=== PATIENT | male | born 1955 | race Caucasian/White ===

== ENCOUNTER 2019-07-14 19:51 | Inpatient (IN) | payer MEDICAID, SELFPAY ==
[2019-07-14 19:53] VITALS: BP 150/97; PULSE 125; RESP 18; TEMP 36.4; O2SAT 97; BMI 28.9
--- NOTE | 2019-07-14 20:21 | CT_ITS ---
We are attempting to reach an attending provider to discuss findings. An addendum with communication details will be sent when the communication is complete. STUDY: CT ABDOMEN AND PELVIS WITHOUT CONTRAST REASON FOR EXAM: Male, 63 years old. RIGHT LOWER QUADRANT PAIN, NAUSEA X2 DAYS. WORSENING TONIGHT. RADIATION DOSAGE (If Supplied By Facility): CTDIvol = ( 11.23 ) mGy, DLP = ( 614.72 ) mGycm TECHNIQUE: Transaxial images were obtained from the dome of the diaphragm to the symphysis pubis without oral contrast, and without intravenous contrast. Sagittal and coronal images were reconstructed. Individualized dose optimization techniques were used for this CT. COMPARISON: None. FINDINGS: The visualized lung bases are unremarkable. The visualized portions of the heart are within normal limits. Normal liver. Cholelithiasis. Normal spleen. Normal pancreas. Normal bilateral adrenal glands. 5 cm right renal cyst. Normal left kidney. Normal visualized stomach. Normal small intestine. There are multiple colonic diverticula consistent with diverticulosis. Acute appendicitis is present. The appendix is 16 mm in diameter with extensive adjacent fatty stranding. No abscesses or free air are seen. Normal abdominal aorta. Normal inferior vena cava. Normal retroperitoneum. Normal urinary bladder. Mild free pelvic fluid. Normal abdominal wall. Normal osseous structures. CT/Abdomen/Pelvis without Cont IMPRESSION: Acute appendicitis is present. The appendix is 16 mm in diameter with extensive adjacent fatty stranding. No abscesses or free air are seen. Cholelithiasis. Mild free pelvic fluid. Electronically Signed: Allan Herbert MD at 21:11 EST Tel , Service support ,
[2019-07-14 20:41] LABS: Red Blood Cells-Urine 0 SEEN /hpf (0-5); Squamous Epithelial Cells - UA 0 SEEN /hpf (0-5)
[2019-07-14] MEDS: 0.9% Normal Saline 1,000 ML 125 ML IV (20:42)
[2019-07-14] MEDS: Ondansetron 4 MG/2 ML Vial IV (20:43)
[2019-07-14] MEDS: Morphine 4 MG/ML Syringe IV (20:44)
[2019-07-14 20:47] LABS: Absolute Lymphocyte Count 1.95 X10^3/uL (0.83-4.51); Absolute Neutrophil Count 10.8 X10^3/uL (2.0-7.7); Basophil# 0.03 X10^3/uL; Basophil% 0.2 % (0-1); Eosinophil# 0.07 X10^3/uL; Eosinophils% 0.5 % (0-5); Hemoglobin 16.3 g/dL (13.0-16.5); Lymphocyte # 1.95 X10^3/ul (4.0); Lymphocyte % 13.8 % (19-41); Mean Corp Hgb Conc 33.3 g/dL (32-36); Mean Corpuscular Hgb 29.2 pg (27.0-32.0); Mean Corpuscular Volume 87.8 fL (80-94); Mean Platelet Vol. 9.6 fl (6.2-12.0); Monocyte# 1.26 X10^3/uL; Monocyte% 8.9 % (0-10); NRBC Flagged by Analyzer 0 % (0-5); Neutrophil # 10.75 X10^3/uL (2.7-7.7); Neutrophil % 76.2 % (47-70); Platelet Count 217 K/mm3 (150-450); RBC Distribution Width CV 11.9 % (11.6-14.6); RBC Distribution Width SD 38.2 fl (35.1-43.9); Red Blood Count 5.58 M/mm3 (4.6-6.2); White Blood Count 14.1 K/mm3 (4.4-11.0)
[2019-07-14 20:52] LABS: Color, Urine Amber (Yellow); Glucose, Dipstick Normal (Normal); Ketone-Dipstick 15 mg/dl (Negative); Leukocyte Esterase-Dipstick 25 /ul (Negative); Nitrite-Dipstick Negative (Negative); Occult Blood-Urine 25 /ul (Negative); Protein-Dipstick 30 mg/dl (Negative); Urine Clarity Sl. Cloudy (Clear); Urine Urobilinogen 8 mg/dl (Normal)
[2019-07-14 20:57] LABS: Urine Bilirubin Dipstick 1 mg/dL (Negative)
[2019-07-14 20:59] LABS: Bacteria RARE /hpf (None Seen); Mucous, Urine 1+ /hpf (<or=2+); White Blood Cells 0-5 SEEN /hpf (0-5)
[2019-07-14 21:00] LABS: Anion Gap 8 (5-15); BUN 14 mg/dL (7-18); BUN/Creat Ratio 10.4 RATIO (10-20); Calcium,Total 9.3 mg/dL (8.5-10.1); Chloride 99 mmol/L (98-107); Creatinine, Serum 1.34 mg/dL (0.70-1.30); EST Glomerular Filtration Rate 57 mL/min (>60); Est Glom Filt Rate - Afr Amer 69 mL/min (>60); Estimated Creatinine Clearance 58.26 ml/min; Glucose 113 mg/dL (74-106); Potassium 3.7 mmol/L (3.5-5.1); Sodium Level 135 mmol/L (136-145)
--- NOTE | 2019-07-14 21:19 | ED.DCSUM_ITS ---
History of Present Illness Chief Complaint: Abd Pain Narrative: Patient presenting secondary to abdominal pain. Patient reports that he has had abdominal pain since yesterday. He reports that it is a continuous right lower quadrant type abdominal pain that has paroxysms of pain. He reports that these paroxysms will come and go, and are not necessarily associated with any exacerbating or relieving qualities. Patient reports that he has had nausea but no vomiting. He denies any dysuria hematuria diarrhea constipation. He is never had any prior similar episodes in the past. He has a distant history of a hernia surgery when he was an . No other abdominal surgeries. Review of systems otherwise negative. Past Medical History - Allergies and Home Meds Allergies/Adverse Reactions: Allergies Penicillins Allergy (Verified 07/14/19 19:52) [place] Primary Care Physician: Care Physician,No Primary [Primary Care Provider] - Past Medical History: None Surgical History: - - Hernia repair Smoking Status: Never smoker Review of Systems All systems negative except as indicated General: Reports: - - Anorexia Eyes: Denies: Visual changes - bilaterally, Diplopia ENT: Denies: Rhinorrhea, Sore throat Cardiovascular: Denies: Chest pain, Palpitations Respiratory: Denies: Dyspnea, Cough, Dyspnea on exertion Gastrointestinal: Reports: Abdominal pain, Nausea Genitourinary: Denies: Dysuria, Hematuria, Frequency Musculoskeletal: Denies: Back pain, Extremity Pain Skin: Denies: Rash, Wounds Neurological: Denies: Headache, Weakness, Numbness Physical Exam Vital Signs/Narrative: Vital Signs Temp Pulse Resp BP Pulse Ox 07/14/19 19:53 97.5 F L 125 H 18 150/97 H 97 Inital Vital Signs reviewed: Yes General: Well nourished, Well developed, No Acute Distress Head: Normocephalic, Atraumatic Eyes: Perrl, EOMI ENT: Moist mucous membranes, No rhinorrhea Neck: Supple, Nontender Cardiovascular: Regular rate, Regular rhythm, No murmurs Respiratory: No distress, CTA bilaterally, Chest nontender Abdomen: Soft, Nondistended, Normal bowel sounds, Tender - Right lower quadrant over McBurney's point, Guarding Back: Nontender, Normal Inspection Extremities: Nontender, No edema Skin: Normal color, No rash Neurological: Alert, Oriented x3, Cranial nerves II-XII grossly intact, Normal Strength, Normal Sensation Psychological: Normal affect, Normal Mood Diagnostic/Tx/Re-eval - Medical Decision Making Patient presented secondary to right lower quadrant pain his initial history sounded concerning for kidney stone, but his physical exam was concerning for appendicitis. CBC demonstrates a leukocytosis of 14. CT abdomen and pelvis was performed and shows evidence of an perforated appendicitis per radiology and my personal review. Patient has a history of a penicillin allergy he was given Cip ro and Flagyl. He did not request any pain medication. Patient will be admitted under general surgery on-call for definitive surgical management. ED Disposition - Plan for ED Patient: Disposition: Acute Care Hospital [facility] Diagnosis: Acute appendicitis
--- NOTE | 2019-07-14 21:30 | ED.RN ---
[employer] CHANNEL OPENER CALLED, REQUESTED PT COME TO OR PAUL, INFORMATION PASSED TO ABDIEL RN AND ERIC TURNING MACHINE SET UP OPERATOR
[2019-07-14] MEDS: Ciprofloxacin 400 MG/200 ML BAG 200 MG IV (21:37)
[2019-07-14 21:46] VITALS: BP 173/86; PULSE 120; RESP 14; TEMP 36.9; O2SAT 96
[2019-07-14 21:49] VITALS: BP 173/86; PULSE 120; RESP 16; TEMP 36.9; O2SAT 96; BMI 28.9
--- NOTE | 2019-07-14 22:00 | APP_PTH ---
PATIENT: SHREYAS SUBRAMANIAN LOC: MS3 U#:[id number] AGE/SX: 63/M ROOM: GA312 RE07/14/[address]: Dr. Ze Elizabeth MD : 1955 BED: 1 DIS: 07/16/2019 SPEC #: [id number] RECD: 07/15/19 09:11 STATUS: DANIEL REChanel #: [id number] CHIDI: 07/14/19 22:[address]: Ze Elizabeth DEPT: SURGICAL PATHOLOGY RECD BY: Harry Hill ENTERED: 07/15/19 09:38 SP TYPE: APPENDIX OTHR DR: Chelsy Primary Care Phys Tissues: Appendix, NOS Procedures: Surgery Specimen Level III HEADER OPERATION: Appendectomy PRE-OP DIAGNOSIS: Acute appendicitis TISSUE SUBMITTED: Appendix MICROSCOPIC DIAGNOSIS Appendix, appendectomy: Acute appendicitis and periappendicitis. BHAVNA:sourav 07/16/19 MICROSCOPIC DESCRIPTION Slides are reviewed. GROSS DESCRIPTION Received is one container labeled with the patient's name and designated appendix. The specimen consists of an appendix measuring 8.5 cm in length and up to 1.5 cm in diameter. The attached periappendiceal adipose tissue measures up to 3 cm in width. The serosa is congested and covered with hadley, purulent exudate. No obvious perforation is identified. The lumen is filled with fecal material. No fecalith is identified. Air Purifier Servicer sections are submitted in one cassette. / SJ:sourav 07/15/19 TC:2 CPT: 40552
--- NOTE | 2019-07-14 22:02 | HP.PCM_ITS ---
Problem List (1) Acute appendicitis Status: Acute Qualifiers: Acute appendicitis type: with localized peritonitis Appendicitis perforation presence: without perforation Appendicitis abscess presence: without abscess History of Present Illness Date of Admission: 07/14/19 The patient is a 63 year old M who presented to the urgent emergency room this afternoon. I was first notified at approximately 9:30 PM. He has been sick for over 24 hours. Was complaining of severe right lower quadrant pain. He had not noticed any fever. He was noted to be quite tachycardic to 125.. His white blood cell count elevated 14,000 with 76% segs. His urine had ketones. A CT was obtained by the emergency room doctor. This showed cholelithiasis. Acute appendicitis present appendix significant 60 mm diameter extensive adjacent fatty stranding no obvious free air. His previous surgery includes an umbilical herniorrhaphy as a child. He states he has no primary care physician. Past Medical History Allergies Penicillins Allergy (Verified 07/14/19 19:52) Hives Home Medications: Ambulatory Orders Medication Instructions Recorded NK 07/14/19 Surgical History: - - Hernia repair Smoking Status: Never smoker Review of Systems Constitutional: Reports: Chills, Fever Cardiovascular: Denies: Chest Pain Gastrointestinal: Reports: Abdominal Pain Endocrine: Denies: Change in Body Habitus VTE Information - Inpt Only VTE Present on Admission: No Patient Problems: Active and Suspected Problems Acute appendicitis (Acute) - Physical Exam Vitals/I&O's: Vital Signs Temp Pulse Resp BP Pulse Ox 98.4 F 120 H 16 173/86 H 96 07/14/19 21:49 07/14/19 21:49 07/14/19 21:49 07/14/19 21:49 07/14/19 21:49 Oxygen Delivery Method Room Air Weight: 201 lb 11.567 oz Body Mass Index (BMI) 28.9 General: Alert, Oriented x3, Cooperative, No apparent distress Lungs: Clear to auscultation Cardiovascular: Tachycardic Abdomen: Distended, Tender - Quizzically tender to palpation in the entire right lower quadrant right mid abdomen with rebound and guarding Extremities: No Calf Tenderness Laboratory Results 07/14/19 20:30: WBC 14.1 H, RBC 5.58, Hgb 16.3, Hct 49.0, MCV 87.8, MCH 29.2, MCHC 33.3, RDW Std Deviation 38.2, RDW Coeff of Eyal 11.9, Plt Count 217, MPV 9.6, Immature Gran % (Auto) 0.400, Neut % (Auto) 76.2 H, Lymph % (Auto) 13.8 L, [place] % (Auto) 8.9, Eos % (Auto) 0.5, Baso % (Auto) 0.2, Absolute Neuts (auto) 10.8 H, Absolute Lymphs (auto) 1.95, Nucleated RBC % 0 07/14/19 20:30: Sodium 135 L, Potassium 3.7, Chloride 99, Carbon Dioxide 28.0, Anion Gap 8, BUN 14, Creatinine 1.34 H, Estim Creat Clear Calc 58.26, Est GFR (MDRD) Af Amer 69, Est GFR (MDRD) Non-Af 57 L, BUN/Creatinine Ratio 10.4, Glucose 113 H, Calcium 9.3 07/14/19 20:30: Urine Color Meredith, Urine Clarity Sl. Cloudy, Urine pH 6.0, Ur Specific [place] 1.020, Urine Protein 30 H, Urine Glucose (UA) Normal, Urine Ketones 15 H, Urine Occult Blood 25 H, Urine Nitrite Negative, Urine Bilirubin 1 H, Urine Urobilinogen 8 H, Ur Leukocyte Esterase 25 H, Urine RBC 0 SEEN, Urine WBC 0-5 SEEN, Ur Squamous Epith Cells 0 SEEN, Urine Bacteria RARE, Urine Mucus 1+ Current Medications Sodium Chloride () 1,000 mls @ 125 mls/hr IV .Q8H SARA Last Admin: 07/14/19 20:42 Dose: 125 mls/hr Documented by: Ciprofloxacin (Cipro) 400 mg in 200 mls @ 200 mls/hr IV X1 ONE Stop: 07/14/19 22:05 Last Admin: 07/14/19 21:37 Dose: 200 mls/hr Documented by: Metronidazole (Flagyl) 500 mg in 100 mls @ 100 mls/hr IV X1 ONE Stop: 07/14/19 22:06 Assessment/Plan All Active Problems Acute appendicitis (Acute) Findings are very concerning for acute perforated appendicitis. I discussed with the patient recommendations for a laparoscopic appendectomy with conversion to an open approach if indicated. He is aware of the technique, benefit, risk, alternatives. We will proceed as OR timing permits. Ze Elizabeth M.D., F.A.C.S.
--- NOTE | 2019-07-14 22:09 | DCINST_ITS ---
Discharge Diet: Light diet - advance as tolerated - if you have questions about your diet instructions, please talk to you doctor. Discharge Activity: May Not Drive - for 3-5 days or while taking narcotic pain medicine. May shower in (days): 1 Lifting Restrictions: 10 pounds Call your doctor if your incision/area has: Continuous Slow Oozing, Sudden Increased Bleeding, Increased Pain/ Swelling, Increased Redness, Foul Smelling Discharge Call your doctor if you observe: Fever of 101 or Higher Suture Line Care: Avoid Pulling/Pushing, Avoid Pinching/Bending Additional Dressing/Incision Instructions:: Change or remove dressing in 4 days. Leave steri-strips in place for 1 week. Allergies/Adverse Reactions: Allergies Penicillins Allergy (Verified 07/14/19 19:52) Hives Medications to take at Discharge NK 07/14/19 Primary Care Physician: Care Physician,No Primary [Primary Care Provider] - Test Results: Test results from this visit will be discussed in further detail at your follow- up appointment, if applicable. Please Follow Up With: Ze Elizabeth MD - [phone] When: Call to make an appointment to be seen in about 10 days.
[2019-07-14] MEDS: Lactated Ringers 1,000 ML 100 ML IV (23:30)
[2019-07-14] MEDS: Bupivacaine Mpf 0.5% 30 ML VIAL (23:30)
--- NOTE | 2019-07-14 23:32 | PCM.OPRPT ---
Problem List (1) Acute appendicitis Status: Acute Qualifiers: Acute appendicitis type: with localized peritonitis Appendicitis perforation presence: without perforation Appendicitis abscess presence: without abscess Report of Operation Date of Procedure: 07/14/19 Pre-Operative Diagnosis: Severe acute gangrenous appendicitis with localized peritonitis Post-Operative Diagnosis: Same Surgery/Procedure Performed:: Laparoscopic appendectomy with lysis of adhesions Description of Surgical Findings:: Timeout and informed consent was obtained. 63-year-old gentleman was taken the operating placement table underwent general endotracheal intubation esthesia. Cefotetan 2 g were given intravenously. The abdomen sterilely prepped draped. 0.5% Marcaine was used as a local anesthetic. Throughout the procedure total 25 cc was used. Skin sites were pre-anesthetized. A supraumbilical vertical incision was created sharp dissection carried down to the substance tissue direct access was obtained through the fascia direct access to the peritoneum and telemeter trocar was inserted the abdomen was insufflated with CO2 to a pressure of 10 mmHg pressure 5 mm scope trochars were placed in the suprapubic and low mid abdomen the appendix was completely walled off there were loops of small bowel adherent to the anterior lateral abdominal wall with purulent type exudate. Bluntly I had a break free the terminal ileum. The appendix still cannot be identified. Had to identify the fat from the terminal ileum was able to finally dissect free and identified a markedly inflamed gangrenous appendix. Tedious blunt dissection was instituted until the cecal base could be identified. Carefully a window was made and then a standard height 45 Clark stapler was used to transect at that level. This was right at the level of acute inflammation. On inspection of the staple line however I felt that the staple line on the cecum was intact. There was clearly no spillage. This appeared to be intact and viable. 2 firings of a vascular load was required to transect the mesoappendix. There was bleeding from the mesoappendix that had to be controlled with hemo-lock clips. Finally at the completion the right lower quadrant is irrigated aspirated free the pelvis was irrigated and aspirated. The resection site was carefully inspected. [place] to be hemostatic and I felt staple lines were intact. At this point I did not feel that further intervention would be appropriate. The greater omentum was placed overlying the resection site. The appendix had been placed in a retrieval bag was exited the umbilicus. Because of fascial weakness after I allowed the abdomen to deflate of the CO2 I repaired the fascia with a [id number] suture of 0 Nurolon. Skin edges approximated opted for Monocryl subdermal stitches. Steri-Strips Telfa and OpSite dressings applied. Sponge and instrument and needle counts reported surgical correct. Blood loss 100 cc. Specimens appendix. Drains none. Blood loss 100 cc. The patient was taken to the recovery room in satisfactory edition no apparent complication this was a very advanced appendicitis involving loops of small bowel. Significant amount of residual cecal inflammation. I have been anticipating a postoperative ileus and a more prolonged postoperative course. Ze Elizabeth M.D., F.A.C.S. Type of Anesthesia:: General Anesthesiologist: Stanley Johnson
[2019-07-14 23:48] VITALS: BP 130/79; BP 173/86; PULSE 101; RESP 16; TEMP 36.8; O2SAT 97
[2019-07-15] VITALS (10 sets, daily range): BP systolic 104–173; BP diastolic 60–92; PULSE 100–126; RESP 16–18; TEMP 36.9–39.4; O2SAT 92–99; BMI 28.2
[2019-07-15] MEDS: Lactated Ringers 1,000 ML 100 ML IV ×2 (01:03→12:33)
[2019-07-15] MEDS: Acetaminophen 325 MG Tablet 650 MG PO ×3 (02:46→20:10)
--- NOTE | 2019-07-15 05:57 | PN.SURG_ITS ---
Patient Problems: Active and Suspected Problems Acute appendicitis (Acute) Subjective: Pt with a high fever States pain is better than preop - Physical Exam Vitals/I&O's: Vital Signs Temp Pulse Resp BP Pulse Ox 102.9 F H 123 H 18 104/60 95 07/15/19 04:27 07/15/19 04:27 07/15/19 04:27 07/15/19 04:27 07/15/19 04:27 Oxygen Delivery Method Room Air Weight: 193 lb 12.581 oz Body Mass Index (BMI) 28.2 Intake and Output for Last 24 Hours 07/13/19 07/14/19 07/15/19 23:59 23:59 23:59 Intake Total 1200 / 1200 253.33 / 253.33 Balance 1200 / 1200 253.33 / 253.33 Abdomen: Hypoactive Bowel Sounds, Distended, Tender Laboratory Results 07/14/19 20:30: WBC 14.1 H, RBC 5.58, Hgb 16.3, Hct 49.0, MCV 87.8, MCH 29.2, MCHC 33.3, RDW Std Deviation 38.2, RDW Coeff of Eyal 11.9, Plt Count 217, MPV 9.6, Immature Gran % (Auto) 0.400, Neut % (Auto) 76.2 H, Lymph % (Auto) 13.8 L, [place] % (Auto) 8.9, Eos % (Auto) 0.5, Baso % (Auto) 0.2, Absolute Neuts (auto) 10.8 H, Absolute Lymphs (auto) 1.95, Nucleated RBC % 0 07/14/19 20:30: Sodium 135 L, Potassium 3.7, Chloride 99, Carbon Dioxide 28.0, Anion Gap 8, BUN 14, Creatinine 1.34 H, Estim Creat Clear Calc 58.26, Est GFR (MDRD) Af Amer 69, Est GFR (MDRD) Non-Af 57 L, BUN/Creatinine Ratio 10.4, Glucose 113 H, Calcium 9.3 07/14/19 20:30: Urine Color Meredith, Urine Clarity Sl. Cloudy, Urine pH 6.0, Ur Specific [place] 1.020, Urine Protein 30 H, Urine Glucose (UA) Normal, Urine Ketones 15 H, Urine Occult Blood 25 H, Urine Nitrite Negative, Urine Bilirubin 1 H, Urine Urobilinogen 8 H, Ur Leukocyte Esterase 25 H, Urine RBC 0 SEEN, Urine WBC 0-5 SEEN, Ur Squamous Epith Cells 0 SEEN, Urine Bacteria RARE, Urine Mucus 1+ Current Medications Acetaminophen (Tylenol) 650 mg PO Q6H PRN PRN PRN Reason: Pain Score 1-10/10 Last Admin: 07/15/19 02:46 Dose: 650 mg Documented by: Acetaminophen (Tylenol) 650 mg PO Q6H PRN PRN PRN Reason: HEADACHE/FEVER (T>102.5) Cefotetan Disodium 1 gm/ (Sodium Chloride) 50 mls @ 100 mls/hr IV Q12 SARA Lactated Ringer's () 1,000 mls @ 100 mls/hr IV .Q10H SARA Last Admin: 07/15/19 01:03 Dose: 100 mls/hr Documented by: Sodium Chloride () 250 mls @ 15 mls/hr IV .[id number] PRN PRN Reason: Saline Flush Sodium Chloride () 250 mls @ 15 mls/hr IV .[id number] PRN PRN Reason: Additional IVPB Infusion Morphine Sulfate () 2 - 4 mg IV Q2H PRN PRN PRN Reason: Pain Score 1-10/10 Morphine Sulfate () 2 - 4 mg IV Q2H PRN PRN PRN Reason: Pain Score 1-10/10 Ondansetron HCl (Zofran) 4 mg IV Q8H PRN PRN PRN Reason: NAUSEA Oxycodone HCl (Oxyir) 5 - 10 mg PO Q4H PRN PRN PRN Reason: Pain Score 1-10/10 Sodium Chloride () 10 - 40 ml IV UD PRN PRN Reason: SALINE FLUSH Medical Necessity - Tobacco Use Smoking Status: Former smoker Tobacco Use: Cigarettes Assessment/Plan All Active Problems Acute appendicitis (Acute) Very severe gangrenous appendicitis, tenuous cecal closure. Loops of bowel mobilized off of the inflammed process. Fever to be expected. Will continue antibiotics Allow clears Needs ongoing care
[2019-07-15] MEDS: metroNIDAZOLE 500 MG/100 ML BAG 100 MG IV ×3 (06:10→22:18)
[2019-07-15 06:29] LABS: Absolute Lymphocyte Count 1.08 X10^3/uL (0.83-4.51); Absolute Neutrophil Count 12.4 X10^3/uL (2.0-7.7); Basophil# 0.03 X10^3/uL; Basophil% 0.2 % (0-1); Hematocrit 43.1 % (40-54); Hemoglobin 14.4 g/dL (13.0-16.5); Lymphocyte # 1.08 X10^3/ul (4.0); Lymphocyte % 7.4 % (19-41); Mean Corp Hgb Conc 33.4 g/dL (32-36); Mean Corpuscular Hgb 29.4 pg (27.0-32.0); Mean Platelet Vol. 9.7 fl (6.2-12.0); Monocyte# 1.01 X10^3/uL; Monocyte% 6.9 % (0-10); NRBC Flagged by Analyzer 0 % (0-5); Neutrophil # 12.43 X10^3/uL (2.7-7.7); Neutrophil % 85.1 % (47-70); Platelet Count 191 K/mm3 (150-450); RBC Distribution Width CV 11.9 % (11.6-14.6); White Blood Count 14.6 K/mm3 (4.4-11.0)
--- NOTE | 2019-07-15 10:35 | CASEMGMT ---
RN CM ACCOUNT RELATIONSHIP MANAGER CM to room to meet with patient for initial transition planning/care coordination assessment. RN ANDRZEJ introduced self and role at [facility]. Pt voices understanding and consents to assessment at this time. Pt resting in bed in no distress at this time. Visitors @ bedside and pt agreeable to them being present during assessment. Pt is A/O at this time and answers all questions appropriately. Care providers, pharmacy, and demographics verified at this time. PCP: No PCP. Given list of local PCP's In-network with [facility] Specialists: None Preferred Pharmacy: [facility] Insurance: [facility] Prescription Benefit: Yes Living Will/HPOA: Has both LW and Healthcare POA, who is his friend, Agustin AVILAOK: Brother Herbert Goodwin Living Arrangements: Lives alone in 2-story apt w/basement. States has 12-13 steps between floors. No bathroom on main floor, but does have bathroom on 2nd floor and in basement. Pt states stairs have rails and that he thinks he'll be able to navigate them okay, that he will justtake them slowly. States was independent prior to hospitalization with ADL's and IADL's. Has good support system and friends/family that can help if needed with groceries. Transportation: Pt states drives self and states no transportation concerns at this time. Has friends/family that can can take him home @ discharge and assist with driving as needed. DME: Denies using any DME and denies needs. HHC/SNF: No history of either and denies needs. Pt wishes to return home and states has no concerns with going home at time of discharge. CM to follow for any discharge planning/needs. Pt voices no further concerns/needs at this time. Advised pt to ask for CM if any further questions/concerns/needs arise. Voices understanding. PLAN: Home w/family/friends support and discharge plans in place. Arik MCCLENDON RN, CM
[2019-07-16 01:45] VITALS: BP 133/67; PULSE 98; RESP 16; TEMP 36.7; O2SAT 95
[2019-07-16] MEDS: Lactated Ringers 1,000 ML 100 ML IV (01:51)
[2019-07-16] MEDS: metroNIDAZOLE 500 MG/100 ML BAG 100 MG IV ×2 (05:08→14:50)
[2019-07-16] MEDS: Ondansetron 4 MG/2 ML Vial IV (05:12)
[2019-07-16 05:45] LABS: Absolute Lymphocyte Count 1.31 X10^3/uL (0.83-4.51); Absolute Neutrophil Count 8.7 X10^3/uL (2.0-7.7); Basophil# 0.04 X10^3/uL; Basophil% 0.4 % (0-1); Eosinophil# 0.17 X10^3/uL; Eosinophils% 1.5 % (0-5); Hematocrit 40.8 % (40-54); Hemoglobin 13.9 g/dL (13.0-16.5); Lymphocyte # 1.31 X10^3/ul (4.0); Lymphocyte % 11.7 % (19-41); Mean Corp Hgb Conc 34.1 g/dL (32-36); Mean Corpuscular Hgb 29.8 pg (27.0-32.0); Mean Corpuscular Volume 87.4 fL (80-94); Mean Platelet Vol. 9.6 fl (6.2-12.0); Monocyte# 0.97 X10^3/uL; Monocyte% 8.7 % (0-10); NRBC Flagged by Analyzer 0 % (0-5); Neutrophil # 8.67 X10^3/uL (2.7-7.7); Neutrophil % 77.5 % (47-70); Platelet Count 179 K/mm3 (150-450); RBC Distribution Width CV 11.9 % (11.6-14.6); Red Blood Count 4.67 M/mm3 (4.6-6.2); White Blood Count 11.2 K/mm3 (4.4-11.0)
--- NOTE | 2019-07-16 06:29 | PCM.PN.SRG ---
Patient Problems: Active and Suspected Problems Acute appendicitis (Acute) Subjective: Pt with persistent mild nausea but passing more flatus, no stool Abdominal pain is improved Fever is starting to bessie--pt is not currently noting fever symptoms - Physical Exam Vitals/I&O's: Vital Signs Temp Pulse Resp BP Pulse Ox 98.0 F 98 16 133/67 H 95 07/16/19 01:45 07/16/19 01:45 07/16/19 01:45 07/16/19 01:45 07/16/19 01:45 Oxygen Delivery Method Room Air Weight: 193 lb 12.581 oz Body Mass Index (BMI) 28.2 Intake and Output for Last 24 Hours 07/14/19 07/15/19 07/16/19 23:59 23:59 23:59 Intake Total 1200 / 1200 2636.67 / 2636.67 594.99 / 594.99 Output Total 1700 / 1700 600 / 600 Balance 1200 / 1200 936.67 / 936.67 -5.01 / -5.01 Abdomen: Bowel Sounds Present, Soft, Distended Laboratory Results 07/15/19 05:55: WBC 14.6 H, RBC 4.90, Hgb 14.4, Hct 43.1, MCV 88.0, MCH 29.4, MCHC 33.4, RDW Std Deviation 38.0, RDW Coeff of Eyal 11.9, Plt Count 191, MPV 9.7, Immature Gran % (Auto) 0.400, Neut % (Auto) 85.1 H, Lymph % (Auto) 7.4 L, [place] % (Auto) 6.9, Eos % (Auto) 0.0, Baso % (Auto) 0.2, Absolute Neuts (auto) 12.4 H, Absolute Lymphs (auto) 1.08, Nucleated RBC % 0 07/16/19 05:20: WBC 11.2 H, RBC 4.67, Hgb 13.9, Hct 40.8, MCV 87.4, MCH 29.8, MCHC 34.1, RDW Std Deviation 38.0, RDW Coeff of Eyal 11.9, Plt Count 179, MPV 9.6, Immature Gran % (Auto) 0.200, Neut % (Auto) 77.5 H, Lymph % (Auto) 11.7 L, [place] % (Auto) 8.7, Eos % (Auto) 1.5, Baso % (Auto) 0.4, Absolute Neuts (auto) 8.7 H, Absolute Lymphs (auto) 1.31, Nucleated RBC % 0 Current Medications Acetaminophen (Tylenol) 650 mg PO Q6H PRN PRN PRN Reason: Pain Score 1-10/10 Last Admin: 07/15/19 20:10 Dose: 650 mg Documented by: Acetaminophen (Tylenol) 650 mg PO Q6H PRN PRN PRN Reason: HEADACHE/FEVER (T>102.5) Cefotetan Disodium 1 gm/ (Sodium Chloride) 50 mls @ 100 mls/hr IV Q12 [facility] Last Infusion: 07/15/19 22:06 Dose: Infused Documented by: Lactated Ringer's () 1,000 mls @ 100 mls/hr IV .Q10H [facility] Last Infusion: 07/16/19 06:08 Dose: 100 mls/hr Documented by: Sodium Chloride () 250 mls @ 15 mls/hr IV .[id number] PRN PRN Reason: Saline Flush Sodium Chloride () 250 mls @ 15 mls/hr IV .[id number] PRN PRN Reason: Additional IVPB Infusion Metronidazole (Flagyl) 500 mg in 100 mls @ 100 mls/hr IV Q8 SARA Last Infusion: 07/16/19 06:08 Dose: Infused Documented by: Morphine Sulfate () 2 - 4 mg IV Q2H PRN PRN PRN Reason: Pain Score 1-10/10 Morphine Sulfate () 2 - 4 mg IV Q2H PRN PRN PRN Reason: Pain Score 1-10/10 Ondansetron HCl (Zofran) 4 mg IV Q8H PRN PRN PRN Reason: NAUSEA Last Admin: 07/16/19 05:12 Dose: 4 mg Documented by: Oxycodone HCl (Oxyir) 5 - 10 mg PO Q4H PRN PRN PRN Reason: Pain Score 1-10/10 Sodium Chloride () 10 - 40 ml IV UD PRN PRN Reason: SALINE FLUSH Medical Necessity - Tobacco Use Smoking Status: Former smoker Tobacco Use: Cigarettes Assessment/Plan All Active Problems Acute appendicitis (Acute) Leukocytosis is improving. Bowel function returning albeit the patient just mildly nauseated and still slightly distended. I will advance to full liquids. I will send home-going antibiotics to his pharmacy. I anticipate ongoing progress and I would hope for discharge later today. We will not need narcotics at discharge Dr. Kelly will cover in my absence Ze Elizabeth M.D., F.A.C.S.
[2019-07-16 08:20] VITALS: BP 144/93; PULSE 112; RESP 18; TEMP 36.9; O2SAT 94
[2019-07-16 10:00] VITALS: PULSE 92
[2019-07-16 16:28] VITALS: BP 147/98; PULSE 60; RESP 18; TEMP 36.8; O2SAT 96
== END 2019-07-16 17:05 | disposition home or self-care (01) | DRG 233 ==
LOC: ED 21:22 → SDC 21:31 → AC 21:32 → MS3 07-15 02:12 → SDC 07-15 07:35
PROVIDERS: Admitting Provider Surgery; Emergency Provider Emergency Medicine; Visit Provider Surgery
PROC: 0DTJ4ZZ Resection of Appendix, Percutaneous Endoscopic Approach (ICD-10-PCS; CPT 44950; principal; 2019-07-14 22:00)
DX: K35.31 Acute appendicitis with localized peritonitis and gangrene, without perforation (principal); I10 Essential (primary) hypertension; Z87.891 Personal history of nicotine dependence
CPT/HCPCS: 36415; 74176; 80048; 81001; 85025; 88304; 99283; J7030; J7120; A4216; J0744; J2405

== ENCOUNTER 2019-07-21 15:27 | Emergency (ER) | payer MEDICAID, SELFPAY ==
[2019-07-15 00:39] VITALS: BMI 28.2
[2019-07-21 15:29] VITALS: BP 137/91; PULSE 105; RESP 20; TEMP 36.9; O2SAT 98; BMI 28.0
[2019-07-21] MEDS: 0.9% Normal Saline 1,000 ML 1000 ML IV (16:24)
[2019-07-21 16:34] LABS: Absolute Lymphocyte Count 1.32 X10^3/uL (0.83-4.51); Absolute Neutrophil Count 3.8 X10^3/uL (2.0-7.7); Basophil# 0.04 X10^3/uL; Basophil% 0.7 % (0-1); Eosinophil# 0.12 X10^3/uL; Eosinophils% 2.1 % (0-5); Hematocrit 43.4 % (40-54); Hemoglobin 14.7 g/dL (13.0-16.5); Lymphocyte # 1.32 X10^3/ul (4.0); Lymphocyte % 22.7 % (19-41); Mean Corp Hgb Conc 33.9 g/dL (32-36); Mean Corpuscular Hgb 29.5 pg (27.0-32.0); Mean Corpuscular Volume 87.1 fL (80-94); Mean Platelet Vol. 9.3 fl (6.2-12.0); Monocyte# 0.54 X10^3/uL; Monocyte% 9.3 % (0-10); NRBC Flagged by Analyzer 0 % (0-5); Neutrophil # 3.77 X10^3/uL (2.7-7.7); Neutrophil % 64.7 % (47-70); Platelet Count 295 K/mm3 (150-450); RBC Distribution Width CV 11.8 % (11.6-14.6); RBC Distribution Width SD 37.4 fl (35.1-43.9); Red Blood Count 4.98 M/mm3 (4.6-6.2); White Blood Count 5.8 K/mm3 (4.4-11.0)
[2019-07-21 16:42] LABS: International Normalized Ratio 1.3; Prothrombin Time (Protime)PT. 15.6 SECONDS (11.7-14.9)
[2019-07-21 16:43] LABS: Partial Thromboplast Time 34.3 Seconds (24.1-36.2)
[2019-07-21 16:44] LABS: Anion Gap 4 (5-15); BUN 12 mg/dL (7-18); BUN/Creat Ratio 10.6 RATIO (10-20); Calcium,Total 9.1 mg/dL (8.5-10.1); Chloride 104 mmol/L (98-107); Creatinine, Serum 1.13 mg/dL (0.70-1.30); EST Glomerular Filtration Rate 70 mL/min (>60); Est Glom Filt Rate - Afr Amer 84 mL/min (>60); Estimated Creatinine Clearance 69.09 ml/min; Glucose 132 mg/dL (74-106); Potassium 4.1 mmol/L (3.5-5.1); Sodium Level 138 mmol/L (136-145)
--- NOTE | 2019-07-21 17:40 | ED.VISSUMM ---
- ER Visit Summary Date of Service: 07/21/19 Chief Complaint: Bright red blood in stool History of Present Illness: The patient is a 63 M who does not have a primary care physician. Reports that 1 week ago he had a laparoscopic appendectomy by Dr. Ze Elizabeth. He was discharged from the hospital 5 days ago. He was on Cipro and Flagyl. He took his last dose of Cipro 2:00 today. He reports that he is done with all of the antibiotics at this point. Patient reports that his abdominal pain since the surgery is essentially nonexistent. He reports his pain is 1 out of 10 severity. He has not taken anything for pain. He denies any nausea or vomiting. He reports he had diarrhea since the surgery. He is had this 4-6 times a day. He states that he is had a 4 times today and it seems to be improving rather than getting worse. However, proximally 2 hours ago when he wiped there was bright red blood on the tissue. He did not look in the toilet. There is been blood previous to this. He denies any rectal pain. Physical Examination: Vitals: Stable. Afebrile. General: Well-nourished and well-developed. Head: Normocephalic atraumatic. Neck: Supple, no lymphadenopathy. No JVD. Nontender. Cardiovascular: Regular rate and rhythm. No murmurs. Respiratory: No respiratory distress. Clear to auscultation bilaterally. Abdominal: Soft, nontender, nondistended, normal bowel sounds. No guarding, rebound, or peritoneal signs. Incisions are healing well. There is no erythema, induration, or fluctuance to suggest infection. Rectal: Patient does have a small external hemorrhoid at 3:00. There is no active bleeding. This is not thrombosed. There is a small amount of skin breakdown from the wiping. There is no anal fissure. Back: Nontender. Extremities: Nontender, no edema. Skin: Normal color, no rash. Neurologic: Alert and oriented ?3. Cranial nerves II through XII are intact. Normal strength and sensation. Psych: Normal affect. Test Results: CBC is normal with a hemoglobin of 14.7. Chem-7 shows a glucose of 132. Coags are normal. Emergency Department Course and Treatment: Patient has not had any diarrhea while here. He is resting comfortably. Treatment Plan: Patient was discussed with Dr. Horner. He will be discharged with a outpatient prescription for C. difficile. Instructed to follow-up with Dr. Rubin in a week for another exam. Patient has never had a colonoscopy. Instructed return to emerge department for any worsening symptoms. Disposition: To home in improved and stable condition. Impression: 1. External hemorrhoids. 2. Diarrhea. 3. 1 week status post appendectomy. This note was generated with [employer] dictation software. It may contain incorrect words, spelling, and punctuation that were not noted in review of the chart prior to signing ED Disposition - Plan for ED Patient: Instructions: Hemorrhoids Referrals: Ze Elizabeth MD [STAFF PHYSICIAN] - 1 Week
[2019-07-21 17:50] VITALS: BP 136/87; PULSE 8; RESP 16; O2SAT 99
== END 2019-07-21 17:55 | disposition home or self-care (01) ==
LOC: ED 16:28
PROVIDERS: Emergency Provider Emergency Medicine
DX: K64.4 Residual hemorrhoidal skin tags (principal); R19.7 Diarrhea, unspecified; Z90.89 Acquired absence of other organs
CPT/HCPCS: 80048; 85025; 85610; 85730; 96360; 99283; J7030; A4216

== ENCOUNTER → 2019-07-22 | Outpatient (CLI) | payer MEDICAID, SELFPAY ==
[2019-07-21 15:29] VITALS: BMI 28.0
== END | disposition home or self-care (01) ==
LOC: LABSPEC 09:55
PROVIDERS: Referring Provider Surgery; Visit Provider Surgery
DX: R19.7 Diarrhea, unspecified (principal)
CPT/HCPCS: 87493